=== PATIENT | female | born 1965 | race Caucasian/White ===

== ENCOUNTER 2017-01-04 17:58 | Inpatient (IN) | payer MEDICAID ==
[2017-01-04 20:52] LABS: BASOPHIL % 0.5 % (0-2); PLATELET COUNT 254 x10^3mcL (130-400)
[2017-01-04 20:57] LABS: CALCIUM 8.6 mg/dL (8.5-10.1); CARBON DIOXIDE 24.7 mmol/L (21-32); CHLORIDE SERUM 104 mmol/L (98-107); CREATININE SERUM 0.9 mg/dL (0.6-1.0); GFR1 > 60 mL/min; GLUCOSE SERUM 91 mg/dL (74-106); POTASSIUM SERUM 3.1 mmol/L (3.5-5.1); RED CELL DISTRIBUTION WIDTH 20.1 % (11.5-14.5); SODIUM SERUM 139 mmol/L (136-145)
[2017-01-04 21:01] LABS: ALBUMIN 3.1 g/dL (3.4-5.0); ALKALINE PHOSPHATASE 204 U/L (46-116); ALT/SGPT 8 U/L (14-59); AST/SGOT 24 U/L (15-37); BILIRUBIN TOTAL 2.2 mg/dL (0.20-1.00); CHOLESTEROL 98 mg/dL (<200); CHOLESTEROL/HDL RATIO 5.4; HDL CHOLESTEROL 18 mg/dL (40-60); LIPASE 68 IU/L (73-393); TOTAL PROTEIN, SERUM 7.9 g/dL (6.4-8.2); TRIGLYCERIDES 94 mg/dL (<150)
[2017-01-04 21:17] LABS: FREE T4 1.84 ng/dL (0.76-1.46)
[2017-01-04 21:21] LABS: FREE THYROXINE INDEX 5.3 ug/dL (1.4-4.5); T4(THYROXINE) 13.5 ug/dL (4.7-13.3)
[2017-01-04 21:40] LABS: T3 TOTAL 1.06 ng/mL
[2017-01-04 22:27] LABS: rbc morphology (normal/abnorm) ABNORMAL (NORMAL)
[2017-01-05] VITALS (7 sets, daily range): BP systolic 97–132; BP diastolic 73–84
[2017-01-05] MEDS ORDERED: ASPIR 8181 MG PO (00:47)
[2017-01-05] MEDS ORDERED: NOR5 PO (00:48)
[2017-01-05] MEDS ORDERED: CARVEDILOL3.125 M1 PO (00:48)
[2017-01-05] MEDS ORDERED: HYDROCHLOROTH12.5 M3 PO (00:49)
[2017-01-05 02:34] LABS: MAGNESIUM 1.9 mg/dL (1.8-2.4); PHOSPHOROUS 3.3 mg/dL (2.5-4.9)
[2017-01-05 03:53] LABS: microscopic required? NO
[2017-01-05 04:10] LABS: UA SPECIFIC GRAVITY <=1.005 (1.005-1.035); urine erythrocyte NEGATIVE (NEGATIVE)
[2017-01-06 08:54] LABS: CALCIUM 8.3 mg/dL (8.5-10.1); CARBON DIOXIDE 20.3 mmol/L (21-32); CHLORIDE SERUM 106 mmol/L (98-107); CREATININE SERUM 0.8 mg/dL (0.6-1.0); GFR1 > 60 mL/min; GLUCOSE SERUM 72 mg/dL (74-106); MAGNESIUM 1.7 mg/dL (1.8-2.4); PHOSPHOROUS 4.1 mg/dL (2.5-4.9); POTASSIUM SERUM 3.9 mmol/L (3.5-5.1); SODIUM SERUM 139 mmol/L (136-145)
[2017-01-06 08:58] LABS: BASOPHIL % 0.5 % (0-2); PLATELET COUNT 225 x10^3mcL (130-400)
[2017-01-06 09:00] VITALS: BP 109/72
[2017-01-06 10:08] LABS: RED CELL DISTRIBUTION WIDTH 20.9 % (11.5-14.5)
[2017-01-06 10:41] VITALS: BP 118/77
[2017-01-06 14:03] VITALS: BP 119/84
[2017-01-06 17:35] VITALS: BP 91/67
[2017-01-06 19:35] LABS: APPEARANCE FLUID CLEAR; COLOR FLUID YELLOW; RBC FLUID 2694 /cumm; SOURCE FLUID PARACENTESIS
[2017-01-06 19:36] LABS: WBC FLUID 47.78 /cumm
[2017-01-06 19:58] LABS: LYMPHOCYTE FLUID 52 %; MONOCYTE FLUID 8 %
[2017-01-06 20:47] VITALS: BP 108/79
[2017-01-07 05:40] VITALS: BP 103/72
[2017-01-07 06:08] LABS: BASOPHIL % 0.7 % (0-2); PLATELET COUNT 232 x10^3mcL (130-400)
[2017-01-07 06:25] LABS: CALCIUM 8.4 mg/dL (8.5-10.1); CARBON DIOXIDE 20.3 mmol/L (21-32); CHLORIDE SERUM 102 mmol/L (98-107); CREATININE SERUM 0.9 mg/dL (0.6-1.0); GFR1 > 60 mL/min; GLUCOSE SERUM 79 mg/dL (74-106); MAGNESIUM 1.8 mg/dL (1.8-2.4); PHOSPHOROUS 4.5 mg/dL (2.5-4.9); POTASSIUM SERUM 3.7 mmol/L (3.5-5.1); SODIUM SERUM 132 mmol/L (136-145)
[2017-01-07 06:35] LABS: RED CELL DISTRIBUTION WIDTH 20.3 % (11.5-14.5)
[2017-01-07 06:36] LABS: rbc morphology (normal/abnorm) ABNORMAL (NORMAL)
[2017-01-07 09:39] VITALS: BP 125/82
[2017-01-07 13:20] VITALS: BP 114/76
[2017-01-08 06:06] VITALS: BP 103/78
[2017-01-08 09:10] VITALS: BP 97/67
[2017-01-08 17:17] VITALS: BP 99/65
[2017-01-08 21:30] VITALS: BP 102/70
[2017-01-09 05:41] VITALS: BP 98/65
[2017-01-09 07:35] LABS: BASOPHIL % 0.6 % (0-2); PLATELET COUNT 243 x10^3mcL (130-400)
[2017-01-09 07:38] LABS: RED CELL DISTRIBUTION WIDTH 19.8 % (11.5-14.5)
[2017-01-09 08:00] LABS: CARBON DIOXIDE 25.9 mmol/L (21-32); CHLORIDE SERUM 103 mmol/L (98-107); CREATININE SERUM 0.8 mg/dL (0.6-1.0); GFR1 > 60 mL/min; GLUCOSE SERUM 71 mg/dL (74-106); SODIUM SERUM 136 mmol/L (136-145)
[2017-01-09 08:10] LABS: POTASSIUM SERUM 2.7 mmol/L (3.5-5.1)
[2017-01-09 09:26] VITALS: BP 96/65
[2017-01-09 13:59] VITALS: BP 96/65
[2017-01-09] MEDS ORDERED: OMEPRAZOLE20 M3 PO (14:16)
[2017-01-09] MEDS ORDERED: ZOFI IV (14:42)
== END 2017-01-09 15:15 | disposition short-term general hospital (02) | DRG 240 ==
LOC: ED 17:58 → DU 01-05 00:29 → MU 01-07 15:23
PROVIDERS: Family Medicine; Specialist; ADMIT Family Medicine
PROC: 0W9G3ZZ Drainage of Peritoneal Cavity, Percutaneous Approach (ICD-10-PCS; principal; 2017-01-06)
DX: R18.0 Malignant ascites (principal); I50.43 Acute on chronic combined systolic (congestive) and diastolic (congestive) heart failure; E44.0 Moderate protein-calorie malnutrition; I42.0 Dilated cardiomyopathy; E87.1 Hypo-osmolality and hyponatremia; R19.00 Intra-abdominal and pelvic swelling, mass and lump, unspecified site; E87.6 Hypokalemia; K29.70 Gastritis, unspecified, without bleeding; I07.1 Rheumatic tricuspid insufficiency; E05.90 Thyrotoxicosis, unspecified without thyrotoxic crisis or storm; R73.03 Prediabetes; Z79.82 Long term (current) use of aspirin
CPT/HCPCS: 83880; 84439; 87116; 87206; 94150; J2060; J2405; J3010; J3480; J7030; Q0092; Q9967